=== PATIENT | female | born 1970 | race African-American/Black ===

== ENCOUNTER 2017-02-15 13:21 | Emergency (ER) | payer BC, MEDICAID ==
[~2017-02-15] VITALS: Ht 172.7 cm; Wt 120.0 kg
[~2017-02-15 13:21] MED LIST: ALBUTEROL; BECL8.7A6 IH; PROMETHAZINE
[2017-02-15 13:39] VITALS: BP 139/75
== END 2017-02-15 15:52 | disposition home or self-care (01) ==
LOC: ER 13:38
DX: R09.89 Other specified symptoms and signs involving the circulatory and respiratory systems (principal); J45.909 Unspecified asthma, uncomplicated; Z88.8 Allergy status to other drugs, medicaments and biological substances
CPT/HCPCS: 70360; 99284

== ENCOUNTER 2017-03-04 11:42 | Emergency (ER) | payer MEDICAID ==
[~2017-03-04] VITALS: Ht 172.7 cm; Wt 125.0 kg
[2017-03-04] MEDS ORDERED: IPRATROPIUM/ALBUTEROL 0.5-3(2.5)MG/3ML NEB HHN ONE (14:00)
[2017-03-04] MEDS ORDERED: METHYLPREDNISOLONE SOD SUCC 125 MG/2 ML VIAL IV ONE (14:00)
[2017-03-04 15:13] VITALS: BP 138/74
[2017-03-04] MEDS ORDERED: METHYLPREDNISOLONE SOD SUCC 125 MG/2 ML VIAL IM ONE (15:15)
== END 2017-03-04 16:42 | disposition home or self-care (01) ==
LOC: ER 13:19
DX: J45.901 Unspecified asthma with (acute) exacerbation (principal)
CPT/HCPCS: 87804; 96372; 99284; J2930; J7620; Z7610